=== PATIENT | male | born 1935 | race Two or more races ===

== ENCOUNTER 2019-07-29 10:57 | Emergency (ER) | payer MEDICARE, MEDICAID ==
[~2019-07-29] VITALS: Ht 165.1 cm; Wt 65.8 kg
[2019-07-29 12:06] LABS: Basophils # (auto) 0.1 10 ^3/uL (0-0.2); Eosinophils # (auto) 1.2 10 ^3/uL (0-0.8); Eosinophils % (auto) 12.4 % (0.0-7.0); Hematocrit 46.7 % (41.0-53.0); Hemoglobin 15.4 g/dL (13.5-17.5); Lymphocytes # (auto) 2.8 10 ^3/uL (0.4-5.4); Lymphocytes % (auto) 28.8 % (10.0-50.0); Mean Corpuscular Hemoglobin 29.7 pg (28.0-32.0); Mean Corpuscular Hgb Conc. 32.9 g/dL (32.0-36.0); Mean Corpuscular Volume 90.1 fL (80.0-100.0); Monocytes # (auto) 0.8 10 ^3/uL (0-1.3); Neutrophils # (auto) 4.8 10 ^3/uL (1.6-8.6); Neutrophils % (auto) 49.8 % (37.0-80.0); Platelet Count (auto) 192 10^3/uL (140-450); Red Blood Cells 5.18 10^6/uL (4.5-5.90); Red Cell Distribution Width 15.6 % (11.8-14.3); White Blood Cell 9.7 10^3/uL (4.4-10.8)
[2019-07-29 12:25] LABS: INR 1.86 (0.9-1.15); Partial Thromboplastin Time 32.9 sec (23.64-32.05)
[2019-07-29 13:09] LABS: Albumin 3.3 g/dL (3.4-5.0); Anion Gap 8 (5-15); Blood Urea Nitrogen 28 mg/dL (7-18); Calcium 9.1 mg/dL (8.5-10.1); Carbon Dioxide 25 mmol/L (21-32); Chloride 101 mmol/L (98-107); Glucose 131 mg/dL (74-106); Potassium 4.8 mmol/L (3.5-5.1); Sodium 134 mmol/L (136-145)
[2019-07-29 13:14] LABS: Alanine Aminotransferase 21 U/L (16-61); Alkaline Phosphatase 93 U/L (45-117); Aspartate Aminotransferase 22 U/L (15-37); BUN/Creatinine Ratio 16.2; Bilirubin, Total 0.8 mg/dL (0.2-1.0); GFR African American 49 mL/min; GFR Non-African American 40 mL/min; Lactate Dehydrogenase 186 U/L (87-241); Total Protein 8.3 g/dL (6.4-8.2)
[2019-07-29 13:34] LABS: Urine Bacteria NONE SEEN /hpf (None Seen); Urine Blood Negative /uL (Negative); Urine Mucus FEW (None Seen); Urine Specific Gravity 1.021 (1.001-1.035); Urine WBC 2 /hpf (0 - 3)
[2019-07-29 16:00] VITALS: BP 143/75
== END 2019-07-29 16:14 | disposition home or self-care (01) ==
LOC: ER 11:03
DX: H81.13 Benign paroxysmal vertigo, bilateral (principal); R51 Headache; E11.9 Type 2 diabetes mellitus without complications; E78.5 Hyperlipidemia, unspecified; I25.2 Old myocardial infarction; Z98.61 Coronary angioplasty status
CPT/HCPCS: 36415; 70450; 71046; 80053; 81001; 83615; 83735; 83880; 84484; 85025; 85610; 85730; 87040; 93005